=== PATIENT | female | born 1950 | race Caucasian/White ===

== ENCOUNTER 2021-12-10 14:58 | Emergency (ER) | payer MEDICARE, BC ==
[2021-12-10] MEDS ORDERED: Lidocaine 2% with EPINEPHrine 1:100,000 20 ML MDV INFILT ONE (14:59)
[2021-12-10] MEDS ORDERED: Bacitracin Oint 1 GM U/D Packet TOP ONE (15:37)
[2021-12-10] MEDS ORDERED: Diphtheria,Pertussis(Acell),Tetanus Vaccine 0.5 ML Syringe IM ONE (15:37)
== END 2021-12-10 15:55 | disposition home or self-care (01) ==
LOC: FB.ED 14:58
DX: S01.412A Laceration without foreign body of left cheek and temporomandibular area, initial encounter (principal); Z23 Encounter for immunization; W25.XXXA Contact with sharp glass, initial encounter
CPT/HCPCS: 12011; 90471; 90715; 99281; 99282-25